=== PATIENT | female | born 1970 | race Caucasian/White ===

== ENCOUNTER 2017-02-14 10:11 | Emergency (ER) | payer OTHER ==
[~2017-02-14 10:11] MED LIST: ASPIR 8181 MG PO; COL100 PO; FERL PO; MYL80 CH; NORCO1 TA2 PO; PRI20 PO; ZOC10 PO
[2017-02-14 10:16] VITALS: BP 115/66
== END 2017-02-14 11:15 | disposition home or self-care (01) ==
LOC: ED 10:11
DX: S29.012A Strain of muscle and tendon of back wall of thorax, initial encounter (principal); X58.XXXA Exposure to other specified factors, initial encounter; Y93.89 Activity, other specified; Y99.8 Other external cause status; Y92.89 Other specified places as the place of occurrence of the external cause
CPT/HCPCS: J1885

== ENCOUNTER 2017-12-10 21:35 | Emergency (ER) | payer OTHER ==
[~2017-12-10] VITALS: Ht 152.4 cm; Wt 69.4 kg
[2017-12-10 21:38] VITALS: Ht 152.4 cm; Wt 69.4 kg
[2017-12-10 22:47] VITALS: BP 112/67
== END 2017-12-10 22:47 | disposition home or self-care (01) ==
LOC: ED 21:35
DX: J06.9 Acute upper respiratory infection, unspecified (principal); J01.90 Acute sinusitis, unspecified
CPT/HCPCS: J7613

== ENCOUNTER 2018-07-03 17:14 | Emergency (ER) | payer OTHER ==
[~2018-07-03] VITALS: Ht 152.4 cm; Wt 72.6 kg
[2018-07-03 17:36] VITALS: Ht 152.4 cm; Wt 72.6 kg
[2018-07-03 19:08] LABS: BASOPHIL % 0.5 % (0-2)
[2018-07-03 19:09] LABS: PLATELET COUNT 434 x10^3mcL (130-400); RED CELL DISTRIBUTION WIDTH 15.8 % (11.5-14.5)
[2018-07-03 19:10] LABS: CARBON DIOXIDE 27.3 mmol/L (21-32); CHLORIDE SERUM 102 mmol/L (98-107); CREATININE SERUM 0.7 mg/dL (0.6-1.0); GFR1 > 60 mL/min; GLUCOSE SERUM 109 mg/dL (74-106); POTASSIUM SERUM 3.5 mmol/L (3.5-5.1); SODIUM SERUM 138 mmol/L (136-145)
[2018-07-03 19:15] LABS: ALBUMIN 4.2 g/dL (3.4-5.0); ALKALINE PHOSPHATASE 87 U/L (46-116); ALT/SGPT 35 U/L (14-59); AST/SGOT 20 U/L (15-37); BILIRUBIN TOTAL 0.25 mg/dL (0.20-1.00); MAGNESIUM 2.2 mg/dL (1.8-2.4); TOTAL PROTEIN, SERUM 8.1 g/dL (6.4-8.2)
[2018-07-03 20:32] VITALS: BP 124/78
== END 2018-07-03 20:32 | disposition home or self-care (01) ==
LOC: ED 17:14
PROVIDERS: Emergency Medicine
DX: R42 Dizziness and giddiness (principal); R51 Headache; H93.12 Tinnitus, left ear; I10 Essential (primary) hypertension; Z98.890 Other specified postprocedural states
CPT/HCPCS: J7030; J8597

== ENCOUNTER 2018-12-21 09:00 | Emergency (ER) | payer OTHER ==
[~2018-12-21] VITALS: Ht 152.4 cm; Wt 69.4 kg
[2018-12-21 09:03] VITALS: Ht 152.4 cm; Wt 69.4 kg
[2018-12-21 14:07] VITALS: BP 116/70
== END 2018-12-21 13:30 | disposition home or self-care (01) ==
LOC: ED 09:00
DX: R07.89 Other chest pain (principal); I10 Essential (primary) hypertension; Z98.890 Other specified postprocedural states
CPT/HCPCS: 76641; Q0092

== ENCOUNTER 2019-04-09 08:32 | Emergency (ER) | payer OTHER ==
[~2019-04-09] VITALS: Ht 152.4 cm; Wt 66.2 kg
[2019-04-09 08:42] VITALS: Ht 152.4 cm; Wt 66.2 kg
[2019-04-09 10:15] VITALS: BP 112/75
== END 2019-04-09 10:15 | disposition home or self-care (01) ==
LOC: ED 08:32
DX: J06.9 Acute upper respiratory infection, unspecified (principal); I10 Essential (primary) hypertension; Z98.890 Other specified postprocedural states
CPT/HCPCS: J1885

== ENCOUNTER 2019-05-21 12:53 | Emergency (ER) | payer OTHER ==
[~2019-05-21] VITALS: Ht 152.4 cm; Wt 70.3 kg
[2019-05-21 12:56] VITALS: Ht 152.4 cm; Wt 70.3 kg
[2019-05-21 13:31] LABS: CALCIUM 7.9 mg/dL (8.5-10.1); CARBON DIOXIDE 27.2 mmol/L (21-32); CHLORIDE SERUM 107 mmol/L (98-107); GFR1 > 60 mL/min; GLUCOSE SERUM 111 mg/dL (74-106); POTASSIUM SERUM 3.7 mmol/L (3.5-5.1); SODIUM SERUM 140 mmol/L (136-145)
[2019-05-21 13:35] LABS: ALBUMIN 3.7 g/dL (3.4-5.0); ALKALINE PHOSPHATASE 81 U/L (46-116); ALT/SGPT 25 U/L (14-59); AST/SGOT 20 U/L (15-37); BILIRUBIN TOTAL 0.2 mg/dL (0.20-1.00); TOTAL PROTEIN, SERUM 6.9 g/dL (6.4-8.2)
[2019-05-21 13:36] LABS: microscopic required? NO
[2019-05-21 13:46] LABS: BASOPHIL % 0.5 % (0-2)
[2019-05-21 13:47] LABS: PLATELET COUNT 412 x10^3mcL (130-400)
[2019-05-21 13:47] LABS: UA SPECIFIC GRAVITY 1.015 (1.005-1.035); urine erythrocyte NEGATIVE (NEGATIVE)
[2019-05-21 16:24] VITALS: BP 109/67
== END 2019-05-21 16:24 | disposition home or self-care (01) ==
LOC: ED 12:53
PROVIDERS: Emergency Medicine
DX: B34.9 Viral infection, unspecified (principal); R53.1 Weakness
CPT/HCPCS: 36415; 87804

== ENCOUNTER 2019-08-17 13:30 | Emergency (ER) | payer OTHER ==
[~2019-08-17] VITALS: Ht 152.4 cm; Wt 66.7 kg
[2019-08-17 13:36] VITALS: Ht 152.4 cm; Wt 66.7 kg
[2019-08-17 15:29] LABS: BASOPHIL % 0.4 % (0-2)
[2019-08-17 15:32] LABS: PLATELET COUNT 515 x10^3mcL (130-400); RED CELL DISTRIBUTION WIDTH 18.6 % (11.5-14.5)
[2019-08-17 15:44] LABS: CALCIUM 9.4 mg/dL (8.5-10.1); CARBON DIOXIDE 28.4 mmol/L (21-32); CHLORIDE SERUM 104 mmol/L (98-107); CREATININE SERUM 0.6 mg/dL (0.6-1.0); GFR1 > 60 mL/min; GLUCOSE SERUM 116 mg/dL (74-106); POTASSIUM SERUM 3.9 mmol/L (3.5-5.1); SODIUM SERUM 141 mmol/L (136-145)
[2019-08-17 15:48] LABS: ALBUMIN 3.9 g/dL (3.4-5.0); ALKALINE PHOSPHATASE 90 U/L (46-116); ALT/SGPT 27 U/L (14-59); AST/SGOT 15 U/L (15-37); BILIRUBIN TOTAL 0.2 mg/dL (0.20-1.00); TOTAL PROTEIN, SERUM 7.9 g/dL (6.4-8.2)
[2019-08-17 18:14] VITALS: BP 101/60
== END 2019-08-17 18:14 | disposition home or self-care (01) ==
LOC: ED 13:30
PROVIDERS: Emergency Medicine
DX: R09.1 Pleurisy (principal); R07.89 Other chest pain; Z98.890 Other specified postprocedural states
CPT/HCPCS: 36415; 87804; J1885

== ENCOUNTER 2019-09-08 19:11 | Emergency (ER) | payer OTHER ==
[~2019-09-08] VITALS: Ht 152.4 cm; Wt 68.5 kg
[2019-09-08 19:23] VITALS: Ht 152.4 cm; Wt 68.5 kg
[2019-09-08 20:01] VITALS: BP 123/75
== END 2019-09-08 20:01 | disposition home or self-care (01) ==
LOC: ED 19:11
DX: J06.9 Acute upper respiratory infection, unspecified (principal); I10 Essential (primary) hypertension; Z98.890 Other specified postprocedural states

== ENCOUNTER 2020-02-05 16:35 | Emergency (ER) | payer OTHER ==
[~2020-02-05] VITALS: Ht 142.2 cm; Wt 71.7 kg
[2020-02-05 16:42] VITALS: Ht 142.2 cm; Wt 71.7 kg
[2020-02-05 17:51] VITALS: BP 146/79
== END 2020-02-05 17:51 | disposition home or self-care (01) ==
LOC: ED 16:35
DX: S46.912A Strain of unspecified muscle, fascia and tendon at shoulder and upper arm level, left arm, initial encounter (principal); R03.0 Elevated blood-pressure reading, without diagnosis of hypertension; W10.8XXA Fall (on) (from) other stairs and steps, initial encounter; Y93.89 Activity, other specified; Y92.89 Other specified places as the place of occurrence of the external cause; Y99.8 Other external cause status

== ENCOUNTER 2020-05-31 12:52 | Emergency (ER) | payer OTHER ==
[2020-05-31 15:43] LABS: BASOPHIL % 0.4 % (0-2)
[2020-05-31 15:49] LABS: PLATELET COUNT 471 x10^3mcL (130-400); RED CELL DISTRIBUTION WIDTH 21.4 % (11.5-14.5)
[2020-05-31 15:51] LABS: CALCIUM 8.3 mg/dL (8.5-10.1); CARBON DIOXIDE 28.2 mmol/L (21-32); CHLORIDE SERUM 105 mmol/L (98-107); CREATININE SERUM 0.8 mg/dL (0.6-1.0); GFR1 > 60 mL/min; GLUCOSE SERUM 89 mg/dL (74-106); POTASSIUM SERUM 4.1 mmol/L (3.5-5.1); SODIUM SERUM 138 mmol/L (136-145)
[2020-05-31 15:56] LABS: ALBUMIN 3.9 g/dL (3.4-5.0); ALKALINE PHOSPHATASE 72 U/L (46-116); ALT/SGPT 22 U/L (14-59); AMYLASE 59 U/L (25-115); AST/SGOT 17 U/L (15-37); BILIRUBIN TOTAL 0.2 mg/dL (0.20-1.00); LIPASE 159 IU/L (73-393); TOTAL PROTEIN, SERUM 7.5 g/dL (6.4-8.2)
[2020-05-31 16:23] LABS: rbc morphology (normal/abnorm) ABNORMAL (NORMAL)
[2020-05-31 16:24] LABS: ovalocyte/elliptocyte 1+
[2020-05-31 21:40] VITALS: BP 113/69
== END 2020-05-31 21:40 | disposition home or self-care (01) ==
LOC: ED 12:52
PROVIDERS: Emergency Medicine
DX: R10.32 Left lower quadrant pain (principal)
CPT/HCPCS: J1885

== ENCOUNTER 2020-09-06 20:44 | Emergency (ER) | payer OTHER ==
[~2020-09-06] VITALS: Ht 152.4 cm; Wt 75.3 kg
[2020-09-06 20:57] VITALS: Ht 152.4 cm; Wt 75.3 kg
[2020-09-06 21:57] LABS: BASOPHIL % 0.9 % (0.2-1.3)
[2020-09-06 22:00] LABS: RED CELL DISTRIBUTION WIDTH 16.5 % (12.3-17.7)
[2020-09-06 22:01] LABS: PLATELET COUNT 531 x10^3mcL (179-408)
[2020-09-06 22:10] LABS: CARBON DIOXIDE 29.7 mmol/L (21-32); CHLORIDE SERUM 104 mmol/L (98-107); CREATININE SERUM 0.7 mg/dL (0.6-1.0); GFR1 > 60 mL/min; GLUCOSE SERUM 111 mg/dL (74-106); POTASSIUM SERUM 4.5 mmol/L (3.5-5.1); SODIUM SERUM 137 mmol/L (136-145)
[2020-09-06 22:15] LABS: ALBUMIN 3.9 g/dL (3.4-5.0); ALKALINE PHOSPHATASE 74 U/L (46-116); ALT/SGPT 32 U/L (14-59); AST/SGOT 17 U/L (15-37); BILIRUBIN TOTAL 0.2 mg/dL (0.20-1.00); CHOLESTEROL 168 mg/dL (<200); HDL CHOLESTEROL 47 mg/dL (40-60); LIPASE 138 IU/L (73-393); TOTAL PROTEIN, SERUM 7.1 g/dL (6.4-8.2)
[2020-09-06 22:32] LABS: rbc morphology (normal/abnorm) ABNORMAL (NORMAL)
[2020-09-06 23:33] LABS: UA SPECIFIC GRAVITY 1.025 (1.005-1.035); microscopic required? YES; urine erythrocyte TRACE (NEGATIVE)
[2020-09-06 23:43] LABS: AMPHETAMINE QUAL UR NONE DETECTED (See below)
[2020-09-07 00:07] VITALS: BP 132/80
== END 2020-09-07 00:50 | disposition home or self-care (01) ==
LOC: ED 20:44
PROVIDERS: Emergency Medicine
DX: R78.9 Finding of unspecified substance, not normally found in blood (principal); E03.9 Hypothyroidism, unspecified; E66.9 Obesity, unspecified; Z20.828 Contact with and (suspected) exposure to other viral communicable diseases; Z68.32 Body mass index [BMI] 32.0-32.9, adult
CPT/HCPCS: 83880; J1885; U0003